=== PATIENT | male | born 2000 | race Caucasian/White ===

== ENCOUNTER 2023-12-24 18:46 | Emergency (ER) | payer SELFPAY ==
--- OUTSIDE RECORDS SUMMARY | 2023-12-24 18:48 | XMS REPORT | Continuity of Care Document ---
Author Name Unknown Address [address] [facility] [place] [address] [facility] thconnect Address [address] [facility] [place] [address] Care Team Providers Care Grain Inspector Name Role Phone ROCIO CRAIG Attending Clinician Unavailable ROCIO CRAIG Attending Clinician Unavailable ROCIO CRAIG Admitting Clinician Unavailable Payers Payer Name Policy Type Policy Number Effective Date Expirati on Date Source [id number] 1959 00:00:00 Allergies, Adverse Reactions, Alerts Allergy Name Allergy Type Status Severity Reaction(s) Onset Date Inactive Date Treating Clinician Comments Source No Known Drug Allergie s DA Active [facility] (LUF/LI V/SA) Social History Smoking Status Start Date Stop Date Source Never smoker [facility] (LUF/ADOLFO/SA) Medications Ordered Medication Name Filled Medication Name Start Date Stop Date Current Medication? Ordering Clinician Indication Dosage Frequency Signature (SIG) Comments Components Source sulfamethox azole 800 MG / trimethopri m 160 MG Oral Tablet sulfamethox azole 800 MG / trimethopri m 160 MG Oral Tablet 09-07 14:51: 09 No 1 2xD orally 2 times per day [facility] (LUF/LI V/SA) Vital Signs Vital Name Observation Time Observation Value Comments S ource Height 2023-09-08 14:20:00 177.8 CM Weight 2023-09-08 14:20:00 70.6 KG Heart Rate 2023-09-08 14:45:00 79 /min [facility] (LUF/ADOLFO/SA) Respiratory Rate 2023-09-08 14:45:00 16 /min [facility] (LUF/ADOLFO/SA) O2% BldC Oximetry 2023-09-08 14:45:00 100 % [facility] (LUF/ADOLFO/SA) BP Systolic 2023-09-08 14:45:00 121 mm[Hg] [facility] (LUF/ADOLFO/SA) BP Diastolic 2023-09-08 14:45:00 80 mm[Hg] [facility] (LUF/ADOLFO/SA) Body Temperature 2023-09-08 14:20:00 97.9 [degF] [facility] (LUF/ADOLFO/SA) Pulse Rate 2023-09-08 14:20:00 79 /min [facility] S [facility] (LUF/ADOLFO/SA) Height 2023-09-08 14:20:00 70 [in_i] [facility] S t [facility] (LUF/ADOLFO/SA) Weight 2023-09-08 14:20:[address] [facility] S [facility] (LUF/ADOLFO/SA) BMI (Body Mass Index) 2023-09-08 14:20:00 22.5 kg/m2 [facility] (LUF/ADOLFO/SA) Encounters Start Date/Time End Date/Time Encounter Type Admission Type Attending [facility] Care Department Encounter ID Source 2023-09-08 13:52:00 2023-09-08 14:48:00 PAIN IN RIGHT WRIST 1 ROCIO CRAIG ANDREW [facility], [facility] [place] [address] [facility] [id number] [facility] (LUF/LI V/SA) 2023-09-08 00:00:00 2023-09-08 00:00:00 Inpatient [facility] [place] [address] [facility] [id number] [facility] (LUF/LI V/SA) 2023-09-08 00:00:00 2023-09-08 00:00:00 Inpatient [facility] [place] [address] [facility] [id number] [facility] (MATT/HENNY Segal/)
[2023-12-24 20:14] LABS: SARS-CoV-2 Antigen CONTROL BLUE LINE VIS/BG OK; SARS-CoV-2 Antigen Rapid Res Negative (Negative)
--- NOTE | 2023-12-24 20:21 | RAD REPORT ---
EXAM DESCRIPTION: CTAbdomen Pelvis W Contrast - 12/24/2023 8:12 pm CLINICAL HISTORY: Abdominal pain. ABD PAIN COMPARISON: <Comparisons> TECHNIQUE: CT imaging of the abdomen and pelvis was performed with 100 ml non-ionic IV contrast. All CT scans are performed using dose optimization technique as appropriate and may include automated exposure control or mA/KV adjustment according to patient size. FINDINGS: The lung bases are clear. The liver, spleen, pancreas, adrenal glands and kidneys are within normal limits. No bowel obstruction, free air, free fluid or abscess. The moderate stool is retained in the rectosig moid colon. The appendix is normal. No evidence of significant lymphadenopathy. No suspicious bony findings. IMPRESSION: No acute intra-abdominal or pelvic finding.
[2023-12-24 20:37] LABS: Specific Gravity > 1.030 (1.005-1.030); Sqamous Epithelial None Seen /HPF (None Seen); Urine Bacteria None Seen /HPF (<20); Urine Bilirubin NEGATIVE (Negative); Urine Blood Negative (Negative); Urine Clarity Clear (Clear); Urine Color Yellow (Yellow); Urine Culture Reflex Order NOT NEEDED; Urine Glucose NEGATIVE (Negative); Urine Ketones NEGATIVE (Negative); Urine Microscopic Reflex YN ORDER UMIC; Urine Mucus 4+ /HPF (None Seen); Urine Nitrite NEGATIVE (Negative); Urine Protein 1+ (Negative); Urine RBC <5 /HPF (None Seen); Urine Urobilinogen 2+ (Normal); Urine WBC <5 /HPF (<5); Urine pH 6.5 (5.0-7.0)
[2023-12-24 21:03] LABS: Absolute Lymphocytes (CBC) 1.8 K/uL (0.7-4.9); Absolute Monocytes 0.5 K/uL (0.1-1.3); Absolute Neutrophil 2.1 K/uL (1.8-8.0); Basophils % 0.5 % (0-1.3); Eosinophils % 0.3 % (0-4.4); Hematocrit 44.2 % (39.6-49.0); Hemoglobin 14.6 g/dL (13.6-17.9); Lymphocytes % 41.6 % (15.3-44.8); MCH 28.8 pg (27.0-35.0); MCHC 33.1 g/dL (32.0-36.0); MCV 87.1 fL (80-100); MPV 7.5 fL (7.6-11.3); Monocytes % 11.2 % (3.3-12.3); Neutrophils % 46.4 % (41.7-73.7); Platelets 193 thou/uL (152-406); RBC Red Blood Cell Count 5.07 M/uL (4.33-5.43); Red Cell Distribution Width 13.8 % (12.1-15.2)
[2023-12-24] MEDS ORDERED: NA CHLORIDE 0.9% 1,000 ML ONE (21:04)
[2023-12-24 21:57] LABS: Potassium 4.2 mEq/L (3.5-4.9)
[2023-12-24 21:58] LABS: Anion Gap 11.2 mEq/L (5.0-15.0)
[2023-12-24 21:59] LABS: Albumin 3.3 g/dL (3.4-5.0); Bilirubin Total 0.3 mg/dL (0.2-1.0); Globulin 3.3 g/dL (2.3-3.5); Magnesium 2.1 mg/dL (1.6-2.4); Protein, Total 6.6 g/dL (6.4-8.2)
--- NOTE | 2023-12-24 22:15 | EDPHYS ---
Physician Documentation [facility] Name: Alex Trujillo Age: 23 yrs Sex: Male : 2000 Arrival Date: 12/24/2023 Time: 18:46 Bed 13 Private MD: ED Physician Celestino Jamison HPI: 12/23 19:25 This 23 yrs old Male presents to ER via Ambulatory with complaints of Abdominal Pain, sb4 Decreased Appetite, Vomiting, Headache. 19:25 loss of appetite x 1 week, started experiencing nausea vomiting and diarrhea 2 days sb4 ago. significant other has also had diarrhea, headache, and nausea. denies any fever or chronic medical problems. denies any blood in stool or vomit. denies chest pain, shortness of breath. Historical: - Allergies: 19:17 No Known Allergies; tm6 - PMHx: 19:17 None; tm6 - PSHx: 19:17 None; tm6 - Immunization history:: Client reports having NOT received the Covid vaccine. - Infectious Disease History:: Denies. - Social history:: Smoking status: Patient denies any tobacco usage or history of. Patient uses alcohol, occasionally. ROS: 19:25 Abdomen/GI: Negative for abdominal pain, nausea, vomiting, diarrhea, and constipation, sb4 19:25 Constitutional: Positive for malaise, poor PO intake, 19:25 Abdomen/GI: Positive for nausea, vomiting, and diarrhea, 19:25 All other systems are negative, Exam: 19:25 Constitutional: This is a well developed, well nourished patient who is awake, alert, sb4 and in no acute distress. Head/Face: Normocephalic, atraumatic. Eyes: Extra-ocular motions intact. Periorbital areas with no swelling, redness, or edema. ENT: Mucous membranes moist. Cardiovascular: Regular rate and rhythm with a normal S1 and S2. Respiratory: Lungs have equal breath sounds bilaterally, clear to auscultation and percussion. No rales, rhonchi or wheezes noted. No increased work of breathing, no retractions or nasal flaring. Abdomen/GI: Soft, non-tender, no distension. Skin: Warm, dry with normal turgor. Normal color with no rashes, no lesions, and no evidence of cellulitis. MS/ Extremity: Pulses equal, no cyanosis. Neurovascular intact. Full, normal range of motion. Vital Signs: 19:15 BP 137 / 91; Pulse 73; Resp 19; Temp 99.7(O); Pulse Ox 100% on R/A; Weight 72.57 kg; tm6 Height 5 ft. 10 in. ; Pain 5/10; 22:45 BP 128 / 88; Pulse 70; Resp 16; Temp 98.2; Pulse Ox 100% ; Pain 0/10; jm12 19:15 Body Mass Index 22.96 (72.57 kg, 177.8 cm) tm6 19:15 Pain Scale: Adult tm6 22:45 Pain Scale: Adult jm12 MDM: 19:02 Patient medically screened. sb4 22:13 Data reviewed: vital signs, nurses notes, lab test result(s), radiologic studies, and sb4 as a result, I will discharge patient. Counseling: I had a detailed discussion with the patient and/or guardian regarding the historical points, exam findings, and any diagnostic results supporting the discharge/admit diagnosis, the presence of at least one elevated blood pressure reading (>120/80) during this emergency department visit, lab results, radiology results, to return to the emergency department if symptoms worsen or persist or if there are any questions or concerns that arise at home. 12/23 19:24 Order name: CBC with Diff; Complete Time: 21:09 sb4 12/23 19:24 Order name: CMP; Complete Time: 22:20 sb4 12/23 19:24 Order name: Lipase; Complete Time: 22:20 sb4 12/23 19:24 Order name: Urinalysis w/ reflexes; Complete Time: 20:38 sb4 12/23 19:24 Order name: SARS RAPID; Complete Time: 20:14 sb4 12/23 19:24 Order name: Flu; Complete Time: 20:15 sb4 12/23 19:24 Order name: Magnesium; Complete Time: 22:20 sb4 12/23 19:24 Order name: CT Abd/Pelvis - IV Contrast Only; Complete Time: 20:22 sb4 12/23 19:24 Order name: IV Saline Lock; Complete Time: 20:34 sb4 12/23 19:24 Order name: Labs collected and sent; Complete Time: 20:34 sb4 Administered Medications: 21:45 Drug: NS 0.9% IV 1000 ml IV at 1 bolus Per protocol; 1000 mL bolus Route: IV; Rate: 1 jm12 bolus; Site: right antecubital; 22:45 Follow up: IV Status: Completed infusion; IV Intake: 1000ml jm12 Disposition Summary: 12/24/23 22:15 Discharge Ordered Notes: Location: Home sb4 Problem: new sb4 Symptoms: have improved sb4 Condition: Stable sb4 Diagnosis - Influenza due to other identified influenza virus with gastrointestinal sb4 manifestations Followup: sb4 - With: Emergency Department - When: As needed - Reason: Trouble breathing, Worsening of condition Discharge Instructions: - Discharge Summary Sheet sb4 - Influenza, Adult sb4 - Viral Gastroenteritis, Adult sb4 Forms: - Work release form sb4 - Patient Portal Instructions sb4 - Leadership Thank You Letter sb4 Addendum: 12/26/2023 19:47 Co-signature as Attending Physician, Celestino Jamison MD I reviewed the patient's care r t provided by the Advanced Practice Provider and agree with the diagnosis and treatment plan. Signatures: Dispatcher [employer] Ebonie Swain PA-C PATevin sb4 Celetsino Jamison MD MD rt Tho Harrell RN RN tm6 Iva Murillo RN RN jm12 Corrections: (The following items were deleted from the chart) 12/23 19:25 19:25 CBC+H.LAB.BRZ ordered. EDMS EDMS 19:25 19:25 COMPREHENSIVE METABOLIC PANEL+C.LAB.BRZ ordered. EDMS EDMS 19:25 19:25 LIPASE+C.LAB.BRZ ordered. EDMS EDMS 19:25 19:25 Urinalysis+U.LAB.BRZ ordered. EDMS EDMS 19:25 19:25 SARS-COV-2 Antigen Rapid+I.LAB.BRZ ordered. EDMS EDMS 19:25 19:25 Influenza Screen (A \T\ B)+BA.LAB.BRZ ordered. EDMS EDMS 19:25 19:25 MAGNESIUM+C.LAB.BRZ ordered. EDMS EDMS 19:25 19:25 Abdomen Pelvis W Con+CT.RAD.BRZ ordered. EDMS EDMS
--- NOTE | 2023-12-24 22:15 | ER ---
Nurse's Notes [facility] Name: Alex Trujillo Age: 23 yrs Sex: Male : 2000 Arrival Date: 12/24/2023 Time: 18:46 Bed 13 Private MD: Diagnosis: Influenza due to other identified influenza virus with gastrointestinal manifestations Presentation: 12/23 19:15 Chief complaint: Patient states: no appetite x1 week. Last 3 days has not slept well. tm6 Nausea and vomiting x3 days. Having diarrhea. Pounding headaches. Coronavirus screen: Vaccine status: Patient reports being unvaccinated. Ebola Screen: Patient negative for fever greater than or equal to 101.5 degrees Fahrenheit, and additional compatible Ebola Virus Disease symptoms Patient denies exposure to infectious person. Patient denies travel to an Ebola-affected area in the 21 days before illness onset. No symptoms or risks identified at this time. Initial Sepsis Screen: Does the patient meet any 2 criteria? No. Patient's initial sepsis screen is negative. Does the patient have a suspected source of infection? No. Patient's initial sepsis screen is negative. Risk Assessment: Do you want to hurt yourself or someone else? Patient reports no desire to harm self or others. Onset of symptoms was December 21, 2023. 19:15 Method Of Arrival: Ambulatory tm6 19:15 Acuity: MAIN 3 tm6 Triage Assessment: 19:17 General: Appears in no apparent distress. Behavior is calm, cooperative. Pain: tm6 Complains of pain in abdomen Pain does not radiate. Pain currently is 5 out of 10 on a pain scale. Pain began 2-3 days ago. EENT: No signs and/or symptoms were reported regarding the EENT system. Neuro: Level of Consciousness is awake, alert, obeys commands, Oriented to person, place, time, situation. Cardiovascular: Patient's skin is warm and dry. Respiratory: Airway is patent Respiratory effort is even, unlabored, Respiratory pattern is regular, symmetrical. GI: Abdomen is flat, non-distended, Abd is soft and non tender X 4 quads. Reports lower abdominal pain, upper abdominal pain, diarrhea, intolerance of fluids, intolerance of food, nausea, vomiting. : No signs and/or symptoms were reported regarding the genitourinary system. Derm: No signs and/or symptoms reported regarding the dermatologic system. Musculoskeletal: No signs and/or symptoms reported regarding the musculoskeletal system. Historical: - Allergies: 19:17 No Known Allergies; tm6 - PMHx: 19:17 None; tm6 - PSHx: 19:17 None; tm6 - Immunization history:: Client reports having NOT received the Covid vaccine. - Infectious Disease History:: Denies. - Social history:: Smoking status: Patient denies any tobacco usage or history of. Patient uses alcohol, occasionally. Screenin:36 [facility] ED Fall Risk Assessment (Adult) History of falling in the last 3 months, 12 including since admission No falls in past 3 months (0 pts) Confusion or Disorientation No (0 pts) Intoxicated or Sedated No (0 pts) Impaired Gait No (0 pts) Mobility Assist Device Used No (0 pt) Altered Elimination No (0 pt) Score/Fall Risk Level 0 - 2 = Low Risk. Abuse screen: Denies threats or abuse. Denies injuries from another. Nutritional screening: No deficits noted. Tuberculosis screening: No symptoms or risk factors identified. Assessment: 20:34 General: Appears in no apparent distress. General: Behavior is calm, cooperative. 12 Pain:. Neuro: Reports headache. Cardiovascular: No deficits noted. Respiratory: No deficits noted. GI: Reports epigastric pain, nausea, vomiting. : No deficits noted. No signs and/or symptoms were reported regarding the genitourinary system. EENT: No deficits noted. No signs and/or symptoms were reported regarding the EENT system. Derm: No deficits noted. No signs and/or symptoms reported regarding the dermatologic system. Musculoskeletal: No deficits noted. No signs and/or symptoms reported regarding the musculoskeletal system. Vital Signs: 19:15 BP 137 / 91; Pulse 73; Resp 19; Temp 99.7(O); Pulse Ox 100% on R/A; Weight 72.57 kg; tm6 Height 5 ft. 10 in. ; Pain 5/10; 22:45 BP 128 / 88; Pulse 70; Resp 16; Temp 98.2; Pulse Ox 100% ; Pain 0/10; jm12 19:15 Body Mass Index 22.96 (72.57 kg, 177.8 cm) [facility] 19:15 Pain Scale: Adult [facility] 22:45 Pain Scale: Adult [facility] ED Course: 18:48 Patient arrived in ED. mr 18:51 Ebonie Childs PA-C is PHCP. sb4 18:52 Celestino Jamison MD is Attending Physician. sb4 19:17 Triage completed. tm6 19:17 Arm band placed on right wrist. tm6 19:57 SARS RAPID Sent. tm6 19:57 Flu Sent. tm6 19:57 Urinalysis w/ reflexes Sent. tm6 20:10 Inserted saline lock: 22 gauge in left antecubital area, using aseptic technique. ss ,using aseptic technique. Inserted by Zeyad, greenhouse technician Flushed with 10 mL NS. 20:14 CT Abd/Pelvis - IV Contrast Only In Process Unspecified. EDMS 20:40 CBC with Diff Sent. af3 20:40 CMP Sent. af3 20:40 Lipase Sent. af3 20:41 Magnesium Sent. af3 Administered Medications: 21:45 Drug: NS 0.9% IV 1000 ml IV at 1 bolus Per protocol; 1000 mL bolus Route: IV; Rate: 1 jm12 bolus; Site: right antecubital; 22:45 Follow up: IV Status: Completed infusion; IV Intake: 1000ml jm12 Intake: 22:45 IV: 1000ml; Total: 1000ml. jm12 Outcome: 22:15 Discharge ordered by . sb4 22:45 Discharged to home ambulatory, jm12 22:45 Condition: stable jm12 22:45 Discharge instructions given to patient, Instructed on discharge instructions, follow up and referral plans. Demonstrated understanding of instructions, follow-up care, 22:58 Patient left the ED. jm12 Signatures: Dispatcher [employer] ED[facility] Vero Daley, Reg Reg Sarah Inman, RN Ebonie Bartlett PA-C PA-C sb4 Tho Harrell RN RN tm6 Iva Murillo RN RN 12 Mery Mcpherson af3
[2023-12-24 23:13] VITALS: O2SAT 100
[2023-12-24 23:19] VITALS: BP 128/88; TEMP 98.2
== END 2023-12-24 22:58 | disposition home or self-care (01) ==
LOC: ER 18:46
DX: J10.2 Influenza due to other identified influenza virus with gastrointestinal manifestations (principal); Z11.52 Encounter for screening for COVID-19
CPT/HCPCS: 36415; 74177; 80053; 81001; 83690; 83735; 85025; 87804; 87811; 96360; 99284; J7030; Q9967